=== PATIENT | male | born 1970 | race Caucasian/White ===

== ENCOUNTER 2018-07-18 17:33 | Inpatient (IN) | payer OTHER ==
[2018-07-18 18:27] LABS: #Lymphocytes 0.8 thou/uL (1.20-3.40); #Monocytes 0.9 thou/uL (0.11-0.59); #Neutrophils 5.5 thou/uL (1.40-6.50); %Basophils 0.6 % (0.0-1.0); %Eosinophils 0.1 % (0.0-10.0); %Lymphocytes 10.4 % (21.0-51.0); %Monocytes 12.7 % (0.0-10.0); %Neutrophils 76.1 % (42.0-75.0); Hemoglobin 13.9 g/dL (14.0-18.0); Mean Corpuscular HGB CONC 32.8 g/dL (32.0-36.0); Mean Corpuscular Hemoglobin 36.3 pg (27.0-31.0); Mean Platelet Volume 8.1 fL (7.4-10.4); Platelet Count 122 thou/uL (130-400); RBC Distribution Width 11.5 % (11.5-14.5); Red Blood Cell (RBC) Count 3.82 mill/uL (4.70-6.10); White Blood Cell (WBC) Count 7.3 thou/uL (4.8-10.8)
[2018-07-18 18:45] LABS: MDiff Complete? YES; Macrocytosis SLIGHT = 6-15 cells (100X) (0-5/hpf); Platelet Morphology Comment Appears Decreased
[2018-07-18 18:49] LABS: ALT (SGPT) 367 U/L (8-55); AST (SGOT) 177 U/L (5-34); Alkaline Phosphatase 83 U/L (40-150); Anion Gap 18 mmol/L (10-20); BUN (Urea Nitrogen) 17 mg/dL (8.9-20.6); Bilirubin, Total 1.1 mg/dL (0.2-1.2); Calc. Creatinine Clearance 0 mL/min (70-130); Calcium 9.7 mg/dL (7.8-10.44); Carbon Dioxide 24 mmol/L (22-29); Chloride 102 mmol/L (98-107); Estimated GFR-MDRD Greater than 90; Globulin 2.7 g/dL (2.4-3.5); Glucose 80 mg/dL (70-105); Lipase 9 U/L (8-78); Potassium 3.3 mmol/L (3.5-5.1); Protein, Total 6.7 g/dL (6.0-8.3); Sodium 141 mmol/L (136-145)
[2018-07-18] MEDS ORDERED: Lorazepam 2 MG/ML VIAL ONE ×3 (19:08→22:49)
[2018-07-18] MEDS ORDERED: Potassium Bicarbonate/Cit Ac 25 MEQ TAB ONE (19:08)
[2018-07-18 19:33] LABS: Acetaminophen Less than 6.0 mcg/mL (10.0-30.0); Alcohol Less than 10 mg/dL (Less than 10); Magnesium 1.7 mg/dL (1.6-2.6); Salicylate Less than 8.0 mg/dL (15.0-30.0)
[2018-07-18 19:33] LABS: Bilirubin Negative (Negative); Blood, Urine Negative (Negative); Clarity CLEAR (Clear); Glucose, Urine (Dipstick) Negative (Negative); Leukocyte Negative (Negative); Nitrite Negative (Negative); Protein, Urine (Dipstick) 100 mg/dL (Neg-Trace); Specific Gravity, Urine 1.019 (1.002-1.036); pH, Urine 6.5 (5.0-9.0)
[2018-07-18 19:34] LABS: Bacteria/HPF None Seen HPF (None Seen); Hyaline Casts/LPF 4-6 HYALINE CAST LPF (0-3 Hyaline); Pathc Cast-AUWi Flag 0.43 (0-2.49); Squamous Epithelial 0-3 HPF (0-3); WBC/HPF 0-3 HPF (0-3)
[2018-07-18 20:37] LABS: CKMB 4.1 ng/mL (0-6.6)
--- NOTE | 2018-07-18 20:57 | CT ---
CT BRAIN WITHOUT CONTRAST: 07/18/18 HISTORY: Head injury. Altered mental status and tremors. COMPARISON: None. FINDINGS: No acute hemorrhage or infarct. No midline shift or mass effect. Ventricular size and extra-axial CSF spaces are normal. Mild mucosal thickening of the bilateral maxillary sinuses. Globes are normal. IMPRESSION: No acute intracranial abnormality. POS: [facility]
[2018-07-18] MEDS ORDERED: Multivitamins, Adult 10 ML, Thiamine HCl 100 MG, Folic Acid 1 MG in Dextrose 5 %-0.45 %... IV SCH (21:15)
[2018-07-18] MEDS ORDERED: Aspirin Chewable 81 MG TAB ONE (21:17)
[2018-07-18] MEDS ORDERED: Thiamine HCl 200 MG/2 ML VIAL IM SCH (23:00)
[2018-07-18] MEDS ORDERED: Diazepam 5 MG TAB PO SCH (23:00)
[2018-07-18] MEDS ORDERED: Diazepam 5 MG TAB PO PRN (23:00)
--- NOTE | 2018-07-19 00:04 | HP ---
PRIMARY CARE PHYSICIAN: Unknown. CHIEF COMPLAINT: Alcohol withdrawal. HISTORY OF PRESENT ILLNESS: Mr. Andrew Michael is a 47-year-old male with a past medical history of alcohol use, who presented from the senior care for having alcohol withdrawal symptoms. The patient is unable to provide history, and HPI was obtained from medical records and officer who is present in the room. The patient was arrested on for parole violation and intoxication. They have been treating him for alcohol withdrawal with 25 mg of Librium, clonidine and Flexeril. His symptoms started to get worse and he bumped his head and that is why he was brought to the ER. The patient is unable to provide any further history. PAST MEDICAL HISTORY: Alcohol abuse. PAST SURGICAL HISTORY: Unknown. CURRENT MEDICATION: Unknown. FAMILY HISTORY: Unknown. REVIEW OF SYSTEMS: Unable to perform due to altered mental status. ALLERGIES: PER REVIEW OF CHART, THE PATIENT HAS ALLERGIES TO PENICILLIN. SOCIAL HISTORY: The patient drinks alcohol every day. Per review of chart, the patient is a smoker as well too. No known history of illicit drugs. PHYSICAL EXAMINATION: VITAL SIGNS: The patient's blood pressure is 116/96, pulse 109, respiration rate 20, and 98% O2 saturation on room air. GENERAL: The patient is alert, seemed to be agitated and speaking words that do not quite connect together, had a slight bruise noted on the forehead, otherwise unremarkable. EYES: Extraocular movement intact. Ears and throat, no bleeding noted, no exudate noted. NECK: No lymphadenopathy. CARDIOVASCULAR: Tachycardic, but regular rhythm. No murmurs, rubs or gallops. RESPIRATORY: Clear bilaterally. No wheezes. ABDOMEN: Soft and nontender. Bowel sounds positive. LOWER EXTREMITIES: No edema. SKIN: Multiple bruises noted on the lower extremities and upper extremities. NEUROLOGIC: The patient is alert and agitated. The patient is uncooperative for the rest of the examination. LABORATORY DATA: Reviewed. CBC; white blood cell count 7.2, hemoglobin 13.9, hematocrit 42, and platelets 122. Chemistry; sodium 141, potassium 3.3, chloride 102, carbon dioxide 24, BUN 17, and creatinine 0.48. Lactic acid 0.8. Magnesium 1.7. AST and ALT of 177 and 367 respectively. Troponin 0.029. DIAGNOSTIC DATA: CT of the head reviewed and unremarkable. ASSESSMENT AND PLAN: 1. Alcohol withdrawal. 2. Hypokalemia: 3. Transaminitis: Likely due to ETOH abuse The patient seems to be in alcohol withdrawal at this point. The patient was given Ativan to calm down. We will start the patient on ASE per protocol. We will continue thiamine, folic acid, multivitamin, and magnesium. Valium PRN We will continue to monitor for worsening of withdrawal symptoms. If the patient deteriorates, may need Versed. Hypokalemia, potassium replaced. The patient will be placed on full code as we are unable to verify the code status, the medical power of erisa attorney is unknown. DVT prophylaxis, SCDs only given platelet of 122. Job ID: [id number] MTDD
[2018-07-19 02:08] VITALS: BMI 18.6
[2018-07-19] MEDS ORDERED: Bisacodyl 10 MG SUPP PR PRN (02:14)
[2018-07-19] MEDS ORDERED: Acetaminophen 325 MG TAB PO PRN (02:14)
[2018-07-19] MEDS ORDERED: Ondansetron ODT 4 MG TAB SL PRN (02:15)
[2018-07-19] MEDS ORDERED: Ondansetron PF 4 MG/2 ML Vial IVP PRN (02:15)
[2018-07-19] MEDS ORDERED: Sodium Chloride 0.9% 1,000 ML IV SCH (02:15)
[2018-07-19] MEDS ORDERED: Lorazepam 2 MG/ML VIAL SLOW IVP PRN ×2 (02:16→19:39)
[2018-07-19] MEDS ORDERED: Diazepam 5 MG TAB PO PRN (04:00)
[2018-07-19] MEDS: Sodium Chloride 0.9% 1,000 ML IV SCH ×2 (05:00→16:48)
[2018-07-19 05:45] LABS: Anion Gap 13 mmol/L (10-20); BUN (Urea Nitrogen) 10 mg/dL (8.9-20.6); Calc. Creatinine Clearance 121 mL/min (70-130); Calcium 9.1 mg/dL (7.8-10.44); Carbon Dioxide 26 mmol/L (22-29); Chloride 104 mmol/L (98-107); Estimated GFR-MDRD Greater than 90; Glucose 85 mg/dL (70-105); Potassium 3.6 mmol/L (3.5-5.1); Sodium 139 mmol/L (136-145)
[2018-07-19 06:04] LABS: Band 2 % (5-11); Eosinophils 3 % (0-10); Hemoglobin 13.9 g/dL (14.0-18.0); Lymphocytes 28 % (21-51); MDiff Complete? YES; Macrocytosis SLIGHT = 6-15 cells (100X) (0-5/hpf); Mean Corpuscular HGB CONC 33.4 g/dL (32.0-36.0); Mean Corpuscular Hemoglobin 36.5 pg (27.0-31.0); Mean Platelet Volume 8.3 fL (7.4-10.4); Metamyelocyte 1 % (0-0); Monocytes 23 % (0-10); Neutrophil 40 % (42-75); Platelet Count 121 thou/uL (130-400); Platelet Morphology Comment Appears Decreased; RBC Distribution Width 11.6 % (11.5-14.5); Reactive Lymphocytes 2 % (0-10); Red Blood Cell (RBC) Count 3.81 mill/uL (4.70-6.10); White Blood Cell (WBC) Count 5.1 thou/uL (4.8-10.8)
[2018-07-19] MEDS ORDERED: Multivitamin W/ Minerals 1 TAB PO SCH (09:00)
[2018-07-19] MEDS ORDERED: Prevnar 13-Val Conj/PF 0.5 ML SYRINGE IM ONE (09:00)
[2018-07-19] MEDS: Folic Acid 1 MG TAB PO SCH (09:51)
[2018-07-19] MEDS: Magnesium Oxide 400 MG TAB PO SCH (09:59)
[2018-07-19] MEDS ORDERED: Multivitamins, Adult 10 ML, Thiamine HCl 100 MG, Folic Acid 1 MG in Dextrose 5 %-0.45 %... IV ONE (18:00)
[2018-07-19] MEDS ORDERED: cloNIDine 0.1 MG TAB PO PRN (22:18)
--- NOTE | 2018-07-19 23:45 | PRG ---
DATE OF SERVICE: 07/19/2018 SUBJECTIVE: The tremors have improved. The patient's mentation is almost the same. No seizures or focal neurologic deficit reported. Telemetry monitoring by my review showed sinus rhythm. OBJECTIVE: VITAL SIGNS: Temperature 97.8, pulse 69, blood pressure of 138/80 with respirations of 18, O2 saturation 99% on room air. GENERAL: A 47-year-old male, in no apparent distress. LUNGS: Clear to auscultation bilaterally. No wheezing, rales, or rhonchi. HEART: S1 and S2 present. Regular rate and rhythm. No significant murmurs, rubs, or gallops. ABDOMEN: Soft, nontender. Bowel sounds present. No rebound or guarding. EXTREMITIES: No edema or calf tenderness. NEUROLOGY AND PSYCHIATRY: Remain unchanged except for improvement in tremors. CURRENT MEDICATIONS: Reviewed. REVIEW OF SYSTEMS: Cannot be reliably obtained due to current cognitive status. LABORATORY FINDINGS: WBC 5.1 with platelet count 121, hemoglobin 13.9, hematocrit 41.5. Chemistry showed creatinine 0.7 with normal electrolytes. Troponins were normal. CT scan of the brain by my review was negative for acute findings. IMPRESSION: 1. Toxic metabolic encephalopathy secondary to alcohol withdrawal. 2. Hypokalemia, replaced. 3. Elevated troponin secondary to demand ischemia. 4. Abnormal LFTs secondary to chronic alcoholism. 5. Macrocytosis, rule out vitamin B12 and folic acid deficiency. PLAN: We will discontinue benzodiazepines for now except for IV lorazepam for ASE more than 9. Add neuro checks. Recheck labs in a.m. Check vitamin B12, folic acid. Change IV fluid to D5 half NS with 20 of potassium. Continue thiamine, folic acid, and multivitamin. We will continue alcohol withdrawal protocol. Recheck LFTs in a.m. Job ID: [id number]
[2018-07-20] MEDS: D5 1/2 NS w/20 mEq KCL 1,000 ML IV SCH ×5 (02:00→21:44)
[2018-07-20 05:45] LABS: ALT (SGPT) 189 U/L (8-55); AST (SGOT) 63 U/L (5-34); Albumin 3.4 g/dL (3.5-5.0); Alkaline Phosphatase 70 U/L (40-150); Anion Gap 14 mmol/L (10-20); BUN (Urea Nitrogen) 7 mg/dL (8.9-20.6); Bilirubin, Total 1.3 mg/dL (0.2-1.2); Calc. Creatinine Clearance 133 mL/min (70-130); Calcium 8.5 mg/dL (7.8-10.44); Carbon Dioxide 20 mmol/L (22-29); Chloride 103 mmol/L (98-107); Estimated GFR-MDRD Greater than 90; Globulin 2.8 g/dL (2.4-3.5); Glucose 82 mg/dL (70-105); Magnesium 1.7 mg/dL (1.6-2.6); Phosphorus 3.1 mg/dL (2.3-4.7); Potassium 3.1 mmol/L (3.5-5.1); Protein, Total 6.2 g/dL (6.0-8.3); Sodium 134 mmol/L (136-145)
[2018-07-20 06:03] LABS: Band 4 % (5-11); Eosinophils 4 % (0-10); Hemoglobin 14.4 g/dL (14.0-18.0); Hypochromia SLIGHT = 6-15 cells (100X) (0-5/hpf); Lymphocytes 35 % (21-51); MDiff Complete? YES; Mean Corpuscular HGB CONC 33.4 g/dL (32.0-36.0); Mean Corpuscular Hemoglobin 36.9 pg (27.0-31.0); Mean Platelet Volume 7.5 fL (7.4-10.4); Monocytes 12 % (0-10); Neutrophil 45 % (42-75); Nucleated RBC 1 % (0); Platelet Count 132 thou/uL (130-400); Platelet Morphology Comment Appears Adequate; RBC Distribution Width 11.2 % (11.5-14.5); Red Blood Cell (RBC) Count 3.89 mill/uL (4.70-6.10); White Blood Cell (WBC) Count 4.6 thou/uL (4.8-10.8)
[2018-07-20 06:16] LABS: Folate (Folic Acid) 18.4 ng/mL (7.0-31.4)
[2018-07-20] MEDS: Magnesium Oxide 400 MG TAB PO SCH (08:48)
[2018-07-20] MEDS: Folic Acid 1 MG TAB PO SCH (08:48)
[2018-07-20] MEDS ORDERED: Multivitamins, Adult 10 ML in Sodium Chloride 0.9% 500 ML IV SCH (09:00)
[2018-07-20] MEDS ORDERED: Multivit, Adult Inj 10 ML VIAL IV SCH (09:00)
[2018-07-20] MEDS ORDERED: Lorazepam 1 MG TAB PO PRN (19:11)
--- NOTE | 2018-07-20 19:16 | PDOC.PN ---
- Subjective Encounter Start Date: 07/20/18 Encounter Start Time: 12:30 - Objective Resuscitation Status - Order Detail: 07/18/18 22:48 Resuscitation Status Routine Resuscitation Status: FULL: Full Resuscitation MAR Reviewed: Yes Vital Signs & Weight: Vital Signs (12 hours) Temp Pulse Pulse Pulse Resp BP BP 07/20/18 16:00 96.5 F L 70 16 131/88 07/20/18 12:00 98.1 F 65 14 156/86 H 07/20/18 10:30 86 90 158/92 H 07/20/18 08:00 98.2 F 60 17 153/82 H BP BP Pulse Ox Pulse Ox Pulse Ox 07/20/18 16:00 131/88 99 07/20/18 12:00 156/86 H 99 07/20/18 10:30 162/92 H 99 95 07/20/18 08:00 153/82 H 93 L Weight Admit Weight 145 lb Weight 147 lb I&O: 07/19/18 07/20/18 07/21/18 06:59 06:59 06:59 Intake Total 900 2640 1890 Output Total 900 1900 Balance 900 1740 -10 Result Diagrams: 07/20/18 05:03 07/20/18 05:03 EKG Reviewed by me: Yes (Tele SR) Phys Exam - Physical Examination Constitutional: NAD Respiratory: no wheezing, no rhonchi Cardiovascular: RRR, no rub Gastrointestinal: soft, non-tender, positive bowel sounds Musculoskeletal: no edema Dx/Plan - Plan DVT proph w/SCDs IMPRESSION: 1. Toxic metabolic encephalopathy secondary to alcohol withdrawal. 2. Hypokalemia. 3. Elevated troponin secondary to demand ischemia. 4. Abnormal LFTs secondary to chronic alcoholism. 5. Macrocytosis. Vitamin B12 and folic acid deficiency normal. PLAN: Reduce IVF Replace Potassium Cont ASE Cont current meds as below DC in AM if stable Review of Systems - Review of Systems Respiratory: negative: Cough, Dry, Shortness of Breath, Hemoptysis, SOB with Excertion, Pleuritic Pain, Sputum, Wheezing Cardiovascular: negative: chest pain, palpitations, orthopnea, paroxysmal nocturnal dyspnea, edema, light headedness, other - Medications/Allergies Allergies/Adverse Reactions: Allergies Allergy/AdvReac Type Severity Reaction Status Date / Time Penicillins Allergy Verified 07/19/18 03:07 Medications: Current Medications Acetaminophen (Tylenol) 650 mg PO Q4H PRN PRN Reason: Headache/Fever/Mild Pain (1-3) Bisacodyl (Dulcolax) 10 mg AL DAILYPRN PRN PRN Reason: Constipation Clonidine (Catapres) 0.1 mg PO Q4H PRN PRN Reason: Systolic BP > 180 Folic Acid (Folvite) 1 mg PO DAILY [facility] Last Admin: 07/20/18 08:48 Dose: 1 mg Magnesium Sulfate 1 gm/ Sodium (Chloride) 102 mls @ 102 mls/hr IVPB [facility] Stop: 07/25/18 23:01 Last Admin: 07/19/18 05:01 Dose: 102 mls Potassium Chloride/Dextrose/Sod Cl (D5 1/2 Ns W/20 Meq Kcl) 1,000 mls @ 75 mls/ hr IV .[id number] [facility] Lorazepam (Ativan) 1 mg SLOW IVP Q4H PRN PRN Reason: ASE >9 Lorazepam (Ativan) 1 mg PO Q4H PRN PRN Reason: ASE >=9 Magnesium Oxide (Magnesium Oxide) 400 mg PO DAILY [facility] Last Admin: 07/20/18 08:48 Dose: 400 mg Miscellaneous (Ase Protocol) 1 each FS [facility] Stop: 07/29/18 02:15 Potassium Chloride (K-Dur) 20 meq [facility] Potassium Chloride (Klor-Con) 20 meq PO [facility] Sodium Chloride (Flush - Normal Saline) 10 ml IVF Q12HR [facility] Last Admin: 07/20/18 08:48 Dose: Not Given Sodium Chloride (Flush - Normal Saline) 10 ml IVF PRN PRN PRN Reason: Saline Flush Thiamine HCl (Thiamine) 100 mg PO DAILY [facility] Last Admin: 07/20/18 08:48 Dose: 100 mg
[2018-07-21 05:46] LABS: Potassium 3.9 mmol/L (3.5-5.1)
[2018-07-21] MEDS ORDERED: Potassium Chloride 20 MEQ TAB PO SCH (08:00)
[2018-07-21] MEDS: Magnesium Oxide 400 MG TAB PO SCH (08:59)
[2018-07-21] MEDS: Folic Acid 1 MG TAB PO SCH (08:59)
[2018-07-21] MEDS: D5 1/2 NS w/20 mEq KCL 1,000 ML IV SCH (08:59)
[2018-07-21] MEDS ORDERED: Amlodipine 5 MG TAB PO SCH (11:00)
[2018-07-21 12:50] VITALS: BP 159/95; TEMP 97.5
[2018-07-22] MEDS ORDERED: Amlodipine 5 MG TAB PO SCH (09:00)
--- NOTE | 2018-07-22 10:15 | DIS ---
DATE OF ADMISSION: 07/19/2018 DATE OF DISCHARGE: 07/21/2018 DISPOSITION: The patient is an inmate. ALLERGIES: PENICILLIN. DISCHARGE MEDICATIONS: 1. Thiamine. 2. Folic acid. 3. Multivitamin daily. 4. Clonidine as needed for systolic blood pressure over 180. 5. Amlodipine 5 mg daily. BRIEF HOSPITAL COURSE: The patient is a 47-year-old male with chronic alcohol abuse, who presented from the custodial with altered mentation. His workup was consistent with alcohol withdrawal. He was managed with IV benzodiazepines with alcohol withdrawal protocol. His symptoms are considerably improved. He also had electrolyte abnormalities, which were replaced. He was extensively counseled on tobacco and alcohol cessation. FINAL DIAGNOSES: 1. Toxic metabolic encephalopathy secondary to delirium tremens/alcohol withdrawal. 2. Hypokalemia, replaced. 3. Abnormal LFTs secondary to chronic alcoholism. Repeat labs after 1 to 2 weeks is recommended. 4. Elevated troponin secondary to demand ischemia. 5. Macrocytosis with normal vitamin B12, folic acid. PLAN: Plan was discussed with the patient. He stated understanding. Job ID: [id number]
== END 2018-07-21 13:40 | DRG 896 ==
LOC: ERS 17:33 → 2NO 07-19 01:40
PROVIDERS: ADMIT Family Medicine; ATTEND Family Medicine
DX: F10.239 Alcohol dependence with withdrawal, unspecified (principal); G92 Toxic encephalopathy; I24.8 Other forms of acute ischemic heart disease; R74.0 Nonspecific elevation of levels of transaminase and lactic acid dehydrogenase [LDH]; E87.6 Hypokalemia; D75.89 Other specified diseases of blood and blood-forming organs; F17.210 Nicotine dependence, cigarettes, uncomplicated; Z88.0 Allergy status to penicillin
CPT/HCPCS: 36415; 70450; 80048; 80053; 80307; 81003; 81015; 82140; 82553; 82607; 82746; 83605; 83690; 83735; 84100; 84132; 84443; 84484; 85025; 93005; 96361; 96365; 96366; 96375; 96376; J2060; J2405; J3411; J3475; J7042; J7050